=== PATIENT | male | born 1965 | race Hispanic/Latino ===

== ENCOUNTER 2025-04-26 02:06 | Emergency (ER) | payer BC ==
[~2025-04-26] VITALS: Ht 160 cm; Wt 90.7 kg
[~2025-04-26 02:06] MED LIST: METFORMIN HCL500 MG PO; [UNRECOGNIZED DRUG - REMARK] PO
[2025-04-26] MEDS: ONDANSETRON HCL INJ 2MG/ML 2ML 2 MG/ML VIAL IV STA (03:10)
[2025-04-26] MEDS: SODIUM CHLORIDE 0.9% 1000ML 1,000 ML IV SCH (03:10)
[2025-04-26] MEDS: Morphine 4mg INJECTION 4 MG/ML INJ IV ONE (03:11)
[2025-04-26] MEDS: KETOROLAC TROMETHAMINE 30 MG/ML VIAL IV STA (03:11)
[2025-04-26 03:57] VITALS: PULSE 63; RESP 17; TEMP 98.1
[2025-04-26 04:38] VITALS: BP 119/65; PULSE 61; RESP 16; TEMP 98.5; O2SAT 97
== END 2025-04-26 04:44 | disposition home or self-care (01) ==
LOC: FSED 02:20
DX: R10.9 Unspecified abdominal pain (principal); N20.0 Calculus of kidney; R11.2 Nausea with vomiting, unspecified; E11.65 Type 2 diabetes mellitus with hyperglycemia; K76.0 Fatty (change of) liver, not elsewhere classified
CPT/HCPCS: 74176; 80053; 81003; 84484; 85025; 99284; J1885; J2270; J2405; J7030